=== PATIENT | male | born 1985 | race Two or more races ===

== ENCOUNTER 2020-08-08 01:09 | Emergency (ER) | payer OTHER ==
[~2020-08-08] VITALS: Ht 185.4 cm; Wt 130.6 kg
[2020-08-08] MEDS ORDERED: AMLO10TA4 PO (01:24)
[2020-08-08] MEDS ORDERED: CYCL100C PO (01:24)
--- NOTE | 2020-08-08 01:26 | NUR ---
at bedside for assessment at this time
[2020-08-08] MEDS ORDERED: IV NORMAL SALINE 1000 ML BAG IV ONE (01:30)
[2020-08-08 01:48] LABS: BASOPHILS % (AUTO) 0.5 % (0.0-2.0); EOSINOPHILS # (AUTO) 0.3 K/uL (0.0-0.7); EOSINOPHILS % (AUTO) 3.5 % (0.0-7.0); HEMATOCRIT 38.3 % (36.7-47.1); LYMPHOCYTES # (AUTO) 1.6 K/uL (20.0-40.0); LYMPHOCYTES % (AUTO) 20.7 % (20.5-51.5); MEAN CORPUSCULAR HEMOGLOBIN 30.8 uug (23.8-33.4); MEAN CORPUSCULAR HGB CONC 34 g/dL (32.5-36.3); MEAN CORPUSCULAR VOLUME 90.9 fL (73.0-96.2); MONOCYTES # (AUTO) 1.1 K/uL (2.0-10.0); MONOCYTES % (AUTO) 13.9 % (0.0-11.0); NEUTROPHILS # (AUTO) 4.7 K/uL (1.8-8.9); NEUTROPHILS % (AUTO) 61.4 % (38.5-71.5); PLATELET COUNT (AUTO) 213 K/uL (152-348); RED BLOOD CELL COUNT(AUTO) 4.21 MIL/uL (4.06-5.63); WHITE BLOOD COUNT (AUTO) 7.6 K/uL (3.6-10.2)
[2020-08-08 01:51] LABS: *BILIRUBIN,URIN 3+ (NEGATIVE); *BLOOD, URINE 3+ (NEGATIVE); *CLARITY,URINE CLOUDY (CLEAR); *COLOR,URINE Brown (YELLOW); *KETONES,URINE TRACE (NEGATIVE); LEUKOCYTE ESTERASE ,URINE 3+ (NEGATIVE); NITRITE, URINE NEGATIVE (NEGATIVE); PH,URINE 5.5 (5.0-8.0); UGLUCOSE NEGATIVE (NEGATIVE)
[2020-08-08 01:59] LABS: BILIRUBIN,DIRECT 1.7 mg/dL (0.0-0.2); BILIRUBIN,TOTAL 2.3 mg/dL (0.2-1.0); CREATININE 1.1 mg/dL (0.6-1.3); TOTAL PROTEIN, SERUM 8.1 g/dL (6.4-8.2)
--- NOTE | 2020-08-08 02:10 | NUR ---
Pt out of ER for CT.
[2020-08-08 02:19] LABS: RBC,URINE 20-50 /HPF (0-3)
[2020-08-08 02:24] LABS: CALCIUM OXALATE CRYSTALS,UR FEW /HPF (NONE SEEN)
[2020-08-08 02:25] LABS: URINE AMORPHOUS URATE MANY /HPF
[2020-08-08 02:26] LABS: BACTERIA,URINE FEW /HPF (NONE SEEN)
--- NOTE | 2020-08-08 02:30 | NUR ---
Pt back to ER from CT.
[2020-08-08] MEDS ORDERED: MORPHINE SULFATE 4 MG/1 ML DISP.SYRIN IV ONE (02:45)
[2020-08-08] MEDS ORDERED: ONDANSETRON 4 MG/2 ML VIAL IV ONE (02:45)
[2020-08-08] MEDS ORDERED: MORPHINE SULFATE 4 MG/1 ML DISP.SYRIN ONE (02:53)
[2020-08-08] MEDS ORDERED: ONDANSETRON 4 MG/2 ML VIAL ONE (02:53)
[2020-08-08] MEDS ORDERED: POTASSIUM CHLORIDE 20 MEQ TAB.PRT.SR PO ONE (03:15)
[2020-08-08] MEDS ORDERED: CIPROFLOXACIN IV 400 MG in PREMIXED 1 EACH IV SCH ×2 (03:15→09:00)
[2020-08-08] MEDS ORDERED: POTASSIUM CHLORIDE 20 MEQ TAB.PRT.SR ONE (03:21)
--- NOTE | 2020-08-08 03:44 | NUR ---
PATIENT STATES HE WOULD LIKE TO LEAVE AGAINST MEDICAL ADVICE, MD MADE AWARE AND DISCUSSED MATTER WITH PATIENT, RISKS EXPLAINED WITH PATIENT STILL WISHING TO LEAVE.
[2020-08-08] MEDS ORDERED: HYDROMORPHONE 1 MG/1 ML DISP.SYRIN IV PRN (03:45)
[2020-08-08] MEDS ORDERED: ONDANSETRON 4 MG/2 ML VIAL IV PRN (03:45)
[2020-08-08] MEDS ORDERED: ACETAMINOPHEN 325 MG TABLET PO PRN (03:45)
[2020-08-08] MEDS ORDERED: MAGNESIUM HYDROXIDE 30 ML LIQUID UDC PO PRN (03:45)
[2020-08-08] MEDS ORDERED: HYDROCODONE/APAP 5-325MG TABLET PO PRN (03:45)
[2020-08-08] MEDS ORDERED: IV NS 1000 ML 1,000 ML IV PRN (03:45)
[2020-08-08] MEDS ORDERED: Z GUARD REMEDY PASTE 57 GM TUBE TOP PRN (03:45)
--- NOTE | 2020-08-08 04:05 | NUR ---
Patient does not wish to proceed with medical care recommended by Dr. Ferraro. Took all belongings, no signs of acute distress noted. Patient given information related to possible complications, up to and including , which could occur as a result of leaving the hospital at this time. Patient verbalizes understanding of risks involved due to leaving against medical advice. Patient has signed AMA form.
[2020-08-08 04:14] VITALS: BP 156/89
== END 2020-08-08 04:04 | disposition left against medical advice (07) ==
LOC: ER 01:11
DX: N13.2 Hydronephrosis with renal and ureteral calculous obstruction (principal); N39.0 Urinary tract infection, site not specified; R74.01 Elevation of levels of liver transaminase levels; E87.6 Hypokalemia; Z94.4 Liver transplant status; Z79.899 Other long term (current) drug therapy; E83.01 Wilson's disease; Z87.442 Personal history of urinary calculi; Z88.0 Allergy status to penicillin; Z82.49 Family history of ischemic heart disease and other diseases of the circulatory system; R31.0 Gross hematuria
CPT/HCPCS: 36415; 74176; 80048; 80076; 81001; 83690; 85025; 85730; 87086; 96361; 96365; 96375; 99285; J0744; J2270; J2405; A4663; J7030